=== PATIENT | female | born 1945 | race Caucasian/White ===

== ENCOUNTER 2025-09-09 23:11 | Emergency (ER) | payer MEDICARE, BC ==
[2025-09-10 00:32] LABS: #Basophils Less than 0.03 10x3/uL (0.0-0.2); #Eosinophils Less than 0.03 10x3/uL (0.0-0.5); #Monocytes 0.48 10x3/uL (0.0-1.1); #Neutrophils 9.48 10x3/uL (1.5-8.4); %Basophils 0.1 % (0.0-2.0); %Eosinophils 0.0 % (0.0-6.0); %Lymphocytes 7.7 % (18.0-47.0); %Monocytes 4.4 % (0.0-10.0); %Neutrophils 87.4 % (40.0-75.0); Hematocrit 42.2 % (34.9-44.5); Hemoglobin 14.2 g/dL (12.0-15.5); Mean Corpuscular Hemoglobin 29.2 pg (27.0-33.0); Mean Corpuscular Volume 86.8 fL (81.6-98.3); Platelet Count 280 10x3/uL (150-450); Red Blood Cell (RBC) Count 4.86 10x6/uL (3.90-5.03); White Blood Cell (WBC) Count 10.84 10x3/uL (3.5-10.5)
[2025-09-10] MEDS ORDERED: Famotidine/PF 20 mg/2ml Vial ONE (00:38)
[2025-09-10] MEDS ORDERED: Pantoprazole 40 MG VIAL ONE (00:38)
[2025-09-10 00:56] LABS: ALT (SGPT) 16 U/L (Less than 34); AST (SGOT) 28 U/L (11-34); Albumin 3.9 g/dL (3.1-4.5); Alkaline Phosphatase 67 U/L (40-110); Anion Gap 10 mmol/L (10-20); BUN (Urea Nitrogen) 8 mg/dL (9.8-20.1); Bilirubin, Total 0.5 mg/dL (0.3-1.2); Calc. Creatinine Clearance 0 mL/min (70-130); Calcium 9.5 mg/dL (7.8-10.44); Carbon Dioxide 27 mmol/L (23-31); Chloride 103 mmol/L (98-107); Globulin 3.4 g/dL (2.4-3.5); Glucose 137 mg/dL (83-110); Lipase 22 U/L (8-78); Potassium 3.3 mmol/L (3.5-5.1); Sodium 137 mmol/L (136-145)
[2025-09-10 01:04] LABS: Troponin I Less than 0.010 ng/mL (< 0.028)
[2025-09-10] MEDS ORDERED: Iopamidol 300 61% 100 ML VIAL FS ONE (12:59)
== END 2025-09-10 02:41 | disposition home or self-care (01) ==
LOC: CSHERS 23:11
DX: R11.2 Nausea with vomiting, unspecified (principal); K62.89 Other specified diseases of anus and rectum; K44.9 Diaphragmatic hernia without obstruction or gangrene; I10 Essential (primary) hypertension; E78.5 Hyperlipidemia, unspecified; K21.9 Gastro-esophageal reflux disease without esophagitis; Z79.899 Other long term (current) drug therapy
CPT/HCPCS: 74177; 80053; 83690; 84484; 85025; 93005; J1308; J2470; Q9967; 36415; 96374; 96375